=== PATIENT | male | born 1990 | race Caucasian/White ===

== ENCOUNTER 2018-04-22 09:21 | Inpatient (IN) | payer OTHER ==
[2018-04-22] MEDS: DIPHENHYDRAMINE 50 MG INJ IV (10:49)
[2018-04-22] MEDS: SOD CHLORIDE 0.9% 1,000 ML IV (10:49)
[2018-04-22] MEDS: METOCLOPRAMIDE 10 MG INJ IV ×2 (10:49→18:39)
[2018-04-22 10:52] LABS: ADD MAN DIFF? NO
[2018-04-22 11:02] LABS: WHITE BLOOD COUNT 12.2 10^3/ul (4.8-10.8)
[2018-04-22 11:02] LABS: BASOPHILS % 0.2 % (0.0-2.0); HEMATOCRIT 41.4 % (42.0-52.0); HEMOGLOBIN 14.5 g/dl (14.0-18.0); LYMPHOCYTES % 16.2 % (15.0-51.0); MEAN CORPUSCULAR HEMOGLOBIN 28.8 pg (29.0-33.0); MEAN CORPUSCULAR VOLUME 82.3 fl (82.0-101.0); MEAN PLATELET VOLUME 10.1 fl (7.4-10.4); MONOCYTE # 0.6 10^3/ul (0.3-0.9); MONOCYTES % 4.6 % (0.0-11.0); NEUTROPHIL # 9.6 10^3/ul (1.6-7.5); NEUTROPHILS % 78.5 % (39.0-77.0); PLATELET COUNT 294 10^3/UL (140-415); RED BLOOD COUNT 5.03 10^6/ul (4.70-6.10)
[2018-04-22 11:03] LABS: ADD UMIC YES; UR ASCORBIC ACID NEGATIVE (NEGATIVE); UR BILIRUBIN (Dip) NEGATIVE (NEGATIVE); UR BLOOD (Dip) NEGATIVE (NEGATIVE); UR CLARITY CLEAR (CLEAR); UR COLOR AMBER (YELLOW); UR GLUCOSE (Dip) NEGATIVE (NEGATIVE); UR KETONES (Dip) 2+ mg/dL (NEGATIVE); UR LEUKOCYTE ESTERASE (Dip) NEGATIVE Leu/ul (NEGATIVE); UR MUCUS MANY /HPF (NONE SEEN); UR NITRITE (Dip) NEGATIVE (NEGATIVE); UR RBC 0 /HPF (0-5); UR SPECIFIC GRAVITY (Dip) 1.036 (1.003-1.030); UR TOTAL PROTEIN (Dip) 1+ mg/dl (NEGATIVE); UR UROBILINOGEN (Dip) 2+ mg/dL (NEGATIVE); UR WBC 2 /HPF (0-5)
[2018-04-22 11:31] LABS: ALANINE AMINOTRANSFERASE 22 IU/L (13-69); ALBUMIN 4.5 g/dl (3.3-4.9); ALBUMIN/GLOBULIN RATIO 1.55; ALKALINE PHOSPHATASE 72 IU/L (42-121); ANION GAP 18 (8-16); ASPARTATE AMINO TRANSFERASE 21 IU/L (15-46); BLOOD UREA NITROGEN 15 mg/dl (7-20); CALCIUM 9.4 mg/dl (8.4-10.2); CARBON DIOXIDE 23 mmol/L (21-31); CHLORIDE 104 mmol/L (97-110); CREATININE 0.95 mg/dl (0.61-1.24); GLUCOSE 110 mg/dl (70-220); LIPASE 93 U/L (23-300); POTASSIUM 3.5 mmol/L (3.5-5.1); SODIUM 141 mmol/L (135-144); TOTAL PROTEIN 7.4 g/dl (6.1-8.1)
[2018-04-22] MEDS: HALOPERIDOL 5 MG INJ IV (13:10)
[2018-04-22] MEDS: HALOPERIDOL 5 MG INJ IM (13:11)
[2018-04-22] MEDS ORDERED: ONDANSETRON 4 MG INJ IV ×2 (17:30→18:00)
[2018-04-22] MEDS ORDERED: ACETAMINOPHEN 325 MG TAB PO ×2 (17:30→18:00)
[2018-04-22] MEDS ORDERED: NACL 0.9% 3 ML SYG IV (18:00)
[2018-04-22] MEDS: NS + KCL 20 MEQ 1,000 ML IV (18:39)
[2018-04-22 20:04] LABS: AMPHETAMINE/METHAMPHETAMINE Negative (NEGATIVE); BARBITURATES Negative (NEGATIVE); BENZODIAZEPINES Negative (NEGATIVE); CANNABINOIDS Positive (NEGATIVE); COCAINE Positive (NEGATIVE); OPIATES Negative (NEGATIVE)
[2018-04-22] MEDS: FAMOTIDINE 20 MG INJ IV (20:09)
[2018-04-23] MEDS: NS + KCL 20 MEQ 1,000 ML IV ×2 (02:02→10:55)
[2018-04-23 05:11] LABS: ADD MAN DIFF? NO; BASOPHILS % 0.2 % (0.0-2.0); EOSINOPHILS # 0.1 10^3/ul (0.0-0.5); EOSINOPHILS % 0.8 % (0.0-7.0); HEMATOCRIT 38.3 % (42.0-52.0); HEMOGLOBIN 13.1 g/dl (14.0-18.0); LYMPHOCYTES # 2.8 10^3/ul (0.8-2.9); LYMPHOCYTES % 26.8 % (15.0-51.0); MEAN CORPUSCULAR HEMOGLOBIN 28.5 pg (29.0-33.0); MEAN CORPUSCULAR HGB CONC 34.2 g/dl (32.0-37.0); MEAN CORPUSCULAR VOLUME 83.4 fl (82.0-101.0); MEAN PLATELET VOLUME 10.3 fl (7.4-10.4); MONOCYTE # 0.7 10^3/ul (0.3-0.9); MONOCYTES % 6.5 % (0.0-11.0); NEUTROPHIL # 6.9 10^3/ul (1.6-7.5); NEUTROPHILS % 65.3 % (39.0-77.0); PLATELET COUNT 237 10^3/UL (140-415); RED BLOOD COUNT 4.59 10^6/ul (4.70-6.10); RED CELL DISTRIBUTION WIDTH 13.1 % (11.5-14.5)
[2018-04-23 05:11] LABS: WHITE BLOOD COUNT 10.5 10^3/ul (4.8-10.8)
[2018-04-23] MEDS: METOCLOPRAMIDE 10 MG INJ IV ×3 (05:34→12:00)
[2018-04-23 05:49] LABS: PHOSPHORUS 3.7 mg/dl (2.5-4.9)
[2018-04-23 05:49] LABS: MAGNESIUM 1.8 mg/dl (1.7-2.5)
[2018-04-23 05:52] LABS: CHOL/HDL RATIO 3.4 RATIO; HDL CHOLESTEROL 36 mg/dl (28-63); LDL CHOLESTEROL,CALCULATED 71 mg/dl; TRIGLYCERIDES 89 mg/dl (0-149)
[2018-04-23 05:52] LABS: CHOLESTEROL 125 mg/dl (100-200)
[2018-04-23 05:54] LABS: ALANINE AMINOTRANSFERASE 23 IU/L (13-69); ALBUMIN 3.4 g/dl (3.3-4.9); ALBUMIN/GLOBULIN RATIO 1.36; ALKALINE PHOSPHATASE 51 IU/L (42-121); AMYLASE 42 U/L (11-123); ANION GAP 11 (8-16); ASPARTATE AMINO TRANSFERASE 17 IU/L (15-46); BILIRUBIN,INDIRECT 1.1 mg/dl (0-1.1); BILIRUBIN,TOTAL 1.1 mg/dl (0.2-1.3); BLOOD UREA NITROGEN 13 mg/dl (7-20); CALCIUM 8.7 mg/dl (8.4-10.2); CARBON DIOXIDE 23 mmol/L (21-31); CHLORIDE 108 mmol/L (97-110); GLUCOSE 89 mg/dl (70-220); LIPASE 53 U/L (23-300); POTASSIUM 3.6 mmol/L (3.5-5.1); SODIUM 138 mmol/L (135-144); TOTAL PROTEIN 5.9 g/dl (6.1-8.1)
[2018-04-23 06:07] LABS: FREE T4 (FREE THYROXINE) 1.31 ng/dl (0.79-2.35)
[2018-04-23 07:52] LABS: HEMOGLOBIN A1C 5.6 % (0-5.9)
[2018-04-23] MEDS: FAMOTIDINE 20 MG INJ IV (09:17)
== END 2018-04-23 15:40 | disposition home or self-care (01) | DRG 918 ==
LOC: MS1 21:56 → FTE 09:21 → MS1 17:05
DX: T40.7X1A Poisoning by cannabis (derivatives), accidental (unintentional), initial encounter (principal); D72.829 Elevated white blood cell count, unspecified; R11.2 Nausea with vomiting, unspecified; F12.10 Cannabis abuse, uncomplicated; K21.9 Gastro-esophageal reflux disease without esophagitis
CPT/HCPCS: 80053; 80061; 80307; 81001; 82150; 83036; 83690; 83735; 84100; 84439; 84443; 85025; 96372; 96374; 96375; 99285-25

== ENCOUNTER 2018-04-24 07:55 | Inpatient (IN) | payer OTHER ==
[2018-04-24] MEDS: DIPHENHYDRAMINE 50 MG INJ IV (08:43)
[2018-04-24] MEDS: METOCLOPRAMIDE 10 MG INJ IV (08:43)
[2018-04-24 08:49] LABS: ADD MAN DIFF? NO
[2018-04-24 08:52] LABS: BASOPHILS % 0.1 % (0.0-2.0); EOSINOPHILS % 0.3 % (0.0-7.0); HEMATOCRIT 42.7 % (42.0-52.0); HEMOGLOBIN 14.8 g/dl (14.0-18.0); LYMPHOCYTES # 1.7 10^3/ul (0.8-2.9); LYMPHOCYTES % 15.9 % (15.0-51.0); MEAN CORPUSCULAR HEMOGLOBIN 28.4 pg (29.0-33.0); MEAN CORPUSCULAR HGB CONC 34.7 g/dl (32.0-37.0); MEAN PLATELET VOLUME 10.4 fl (7.4-10.4); MONOCYTE # 0.7 10^3/ul (0.3-0.9); NEUTROPHILS % 76.4 % (39.0-77.0); PLATELET COUNT 307 10^3/UL (140-415); RED BLOOD COUNT 5.21 10^6/ul (4.70-6.10); RED CELL DISTRIBUTION WIDTH 12.8 % (11.5-14.5)
[2018-04-24 08:52] LABS: WHITE BLOOD COUNT 10.5 10^3/ul (4.8-10.8)
[2018-04-24] MEDS ORDERED: CAPSAICIN 0.025% 60 GM CR TOP (09:00)
[2018-04-24 09:02] LABS: ANION GAP 15 (8-16); BLOOD UREA NITROGEN 11 mg/dl (7-20); CALCIUM 9.9 mg/dl (8.4-10.2); CARBON DIOXIDE 26 mmol/L (21-31); CHLORIDE 101 mmol/L (97-110); CREATININE 0.89 mg/dl (0.61-1.24); GLUCOSE 146 mg/dl (70-220); LIPASE 761 U/L (23-300); POTASSIUM 3.7 mmol/L (3.5-5.1); SODIUM 138 mmol/L (135-144)
[2018-04-24] MEDS: ONDANSETRON INJ 8 MG in DEXTROSE 5% 50 ML IV (09:55)
[2018-04-24] MEDS: LORAZEPAM 2 MG INJ IV (14:06)
[2018-04-24] MEDS: LACTATED RINGER'S 1,000 ML IV (14:19)
[2018-04-24] MEDS ORDERED: ONDANSETRON 4 MG INJ IV (14:30)
[2018-04-24] MEDS ORDERED: ACETAMINOPHEN 325 MG TAB PO (14:30)
[2018-04-24] MEDS ORDERED: NACL 0.9% 3 ML SYG IV (16:00)
[2018-04-24] MEDS ORDERED: HALOPERIDOL 1 MG TAB PO (16:00)
[2018-04-24] MEDS ORDERED: METOCLOPRAMIDE 10 MG INJ IV (16:00)
[2018-04-24] MEDS: ONDANSETRON 4 MG INJ IV (16:11)
[2018-04-24] MEDS: AMITRIPTYLINE 50 MG TAB PO (17:43)
[2018-04-24 19:59] LABS: ALANINE AMINOTRANSFERASE 18 IU/L (13-69); ALBUMIN 3.9 g/dl (3.3-4.9); ALBUMIN/GLOBULIN RATIO 1.25; ALKALINE PHOSPHATASE 60 IU/L (42-121); ANION GAP 14 (8-16); ASPARTATE AMINO TRANSFERASE 18 IU/L (15-46); BILIRUBIN,INDIRECT 0.8 mg/dl (0-1.1); BILIRUBIN,TOTAL 0.8 mg/dl (0.2-1.3); BLOOD UREA NITROGEN 8 mg/dl (7-20); CALCIUM 9.3 mg/dl (8.4-10.2); CARBON DIOXIDE 26 mmol/L (21-31); CHLORIDE 102 mmol/L (97-110); CREATININE 0.83 mg/dl (0.61-1.24); GLUCOSE 105 mg/dl (70-220); POTASSIUM 3.5 mmol/L (3.5-5.1); SODIUM 138 mmol/L (135-144)
[2018-04-25 11:29] LABS: ANION GAP 14 (8-16); BLOOD UREA NITROGEN 10 mg/dl (7-20); CALCIUM 9.4 mg/dl (8.4-10.2); CARBON DIOXIDE 27 mmol/L (21-31); CHLORIDE 103 mmol/L (97-110); CREATININE 0.94 mg/dl (0.61-1.24); GLUCOSE 95 mg/dl (70-220); LIPASE 611 U/L (23-300); POTASSIUM 3.9 mmol/L (3.5-5.1); SODIUM 140 mmol/L (135-144)
[2018-04-25] MEDS ORDERED: PROPOFOL 20 ML ×2 (12:01→12:20)
[2018-04-25] MEDS ORDERED: FENTAnyl 50 MCG/ML VIAL (12:01)
== END 2018-04-25 17:55 | disposition home or self-care (01) | DRG 392 ==
LOC: E/R 07:55 → 2NE 15:01
PROC: 0DB58ZX Excision of Esophagus, Via Natural or Artificial Opening Endoscopic, Diagnostic (ICD-10-PCS; principal; 2018-04-25 11:55)
PROC: 0DB68ZX Excision of Stomach, Via Natural or Artificial Opening Endoscopic, Diagnostic (ICD-10-PCS; 2018-04-25 11:55)
DX: K29.70 Gastritis, unspecified, without bleeding (principal); K20.9 Esophagitis, unspecified
CPT/HCPCS: 74176; 74181; 80048; 80053; 83690; 85025; 87081; 88305; 88312; 88313; 96374; 96375; 99285-25